=== PATIENT | female | born 1940 | race Caucasian/White ===

== ENCOUNTER 2020-11-21 06:36 | Day surgery (SDC) | payer MEDICARE ==
[~2020-11-21] VITALS: Ht 160 cm; Wt 79.2 kg
[~2020-11-21 06:36] MED LIST: BUPIVACAINE/PF 0.5% ONE; EPINEPHRINE 1 MG/ML, 1ML ONE
[2020-11-21 07:09] VITALS: BP 150/90
[2020-11-21] MEDS ORDERED: CHLORHEXIDINE 15 ML UDC ONE (07:12)
[2020-11-21] MEDS ORDERED: OCCUVITE PO (07:19)
[2020-11-21] MEDS ORDERED: VITAMIN D3 PO (07:19)
[2020-11-21] MEDS ORDERED: MULT-658 PO (07:19)
[2020-11-21] MEDS ORDERED: MOTRIN PO (07:19)
[2020-11-21] MEDS ORDERED: OXYcodone 5 MG/5 ML ORAL.SOL UDC PO PRN (07:30)
[2020-11-21] MEDS ORDERED: LACTATED RINGERS 1,000 ML IV SCH (07:30)
[2020-11-21] MEDS ORDERED: ONDANSETRON 2MG/ML, 2ML IVPush PRN (07:30)
[2020-11-21] MEDS ORDERED: CHLORHEXIDINE 15 ML UDC PO ONE (07:30)
[2020-11-21] MEDS ORDERED: PROMETHAZINE 25 MG/ML, 1ML IVPush PRN (07:30)
[2020-11-21] MEDS ORDERED: MEPERIDINE/PF 25MG/0.5ML IVPush PRN (07:30)
[2020-11-21] MEDS ORDERED: HYDROmorphone 1 MG/ML, 1ML INJ IVPush PRN (07:30)
[2020-11-21] MEDS ORDERED: HYDROcodone/APAP 7.5-325MG/15ML UDC PO PRN (07:30)
[2020-11-21] MEDS ORDERED: FENTANYL PF 100 MCG/2ML ONE ×3 (07:54→09:47)
[2020-11-21] MEDS ORDERED: ONDANSETRON 2MG/ML, 2ML ONE (08:43)
[2020-11-21] MEDS ORDERED: CEFAZOLIN 1,000 MG ONE (08:43)
[2020-11-21] MEDS ORDERED: DEXAMETHASONE 4 MG/ML, 1ML ONE (08:43)
[2020-11-21] MEDS ORDERED: PROPOFOL 10 MG/ML, 20ML ONE (08:43)
[2020-11-21] MEDS: FENTANYL PF 100 MCG/2ML IV PRN ×2 (09:49→09:55)
[2020-11-21] MEDS ORDERED: OXYcodone 5 MG/5 ML ORAL.SOL UDC ONE (09:59)
[2020-11-21] MEDS ORDERED: KETOROLAC 30 MG/1 ML ONE (10:14)
[2020-11-21] MEDS ORDERED: ACETAMINOPHEN 650 MG/20.3 ML UDC ONE (10:15)
[2020-11-21] MEDS ORDERED: ACETAMINOPHEN 650 MG/20.3 ML UDC PO PRN (10:30)
[2020-11-21] MEDS ORDERED: KETOROLAC 30 MG/1 ML IVPush PRN (10:30)
[2020-11-21] MEDS ORDERED: OXYC5TAB98 PO (10:52)
== END 2020-11-21 14:50 | disposition home or self-care (01) ==
LOC: OUT 06:36
PROVIDERS: ATTEND Orthopaedic Surgery
DX: S52.572A Other intraarticular fracture of lower end of left radius, initial encounter for closed fracture (principal); Z79.899 Other long term (current) drug therapy; X58.XXXA Exposure to other specified factors, initial encounter; Y93.89 Activity, other specified; Y92.89 Other specified places as the place of occurrence of the external cause; Y99.8 Other external cause status
CPT/HCPCS: 25609; 64415; 73100; 93005; C1713; C1776; J1885; J3010; J7120; 76000; J0171; J0690; J1100; J2405; J2704